=== PATIENT | male | born 1995 | race Two or more races ===

== ENCOUNTER 2025-03-05 16:02 | Emergency (ER) | payer OTHER ==
[~2025-03-05] VITALS: Ht 177.8 cm; Wt 89.4 kg
[2025-03-05] MEDS ORDERED: BENZONATATE 200 MG CAPSULE PO ONE (16:45)
[2025-03-05] MEDS ORDERED: IPRATROPIUM BROMIDE 0.5 MG/2.5 ML AMPUL.NEB IH SCH (16:45)
[2025-03-05] MEDS ORDERED: MAGNESIUM SULFATE IN WATER 2 GM/50 ML PIGGYBAG IV ONE (16:45)
[2025-03-05] MEDS ORDERED: FAMOtidine 10 MG/ML (4ML VIAL) IV ONE (16:45)
[2025-03-05] MEDS ORDERED: LEVALBUTEROL HCL 1.25 MG/3 ML SOLUTION IH SCH (16:45)
[2025-03-05] MEDS ORDERED: METHYLPREDNISOLONE SOD SUCC 125 MG VIAL IV ONE (16:45)
[2025-03-05] MEDS ORDERED: PIPERACILLIN/TAZOBACTAM SODIUM 3.375 GM VIAL IV ONE (16:45)
[2025-03-05 17:40] LABS: BASO % 0.3 % (0.1-1.2); EOS # 0.01 (0.04-0.54); EOS % 0.3 % (0.7-7.0); LYMPH # 0.63 (1.18-3.74); LYMPH % 16.1 % (19.3-53.1); MEAN PLATELET VOLUME 10.80 fl (9.4-12.4); MONO # 0.57 (0.24-0.82); NEUT # 2.69 (1.56-6.13); NEUT % 68.5 % (34.0-71.1); RED CELL DISTRIBUTION WIDTH 11.9 % (11.6-14.4)
[2025-03-05 17:42] LABS: MONO % 14.5 % (4.7-12.5)
[2025-03-05 17:55] LABS: COVID-19 AG NEGATIVE (NEGATIVE)
[2025-03-05 17:56] LABS: INR 0.99
[2025-03-05 18:00] LABS: ALT/SGPT 26.0 U/L (12-78); AST/SGOT 25.0 U/L (15-37); BILIRUBIN TOTAL 1.02 mg/dL (0.3-1.2); BUN CREA RATIO 14.0 (7.0-25.0); CREATININE SERUM 1.11 mg/dL (0.70-1.30); GFR 78.88; GLOBULINA 3.2 G/DL (2.4-3.5); GLUCOSE FASTING 125.0 mg/dL (65-100); OSMOLALITY SERUM 275.0 MOSM/KG (275-295)
[2025-03-05 18:00] LABS: ABG PH 7.427 (7.35-7.45); ABG PO2 65.7 mmHg (80-100); BICARBONATE 23.9 mmol/l (23-25)
[2025-03-05 18:01] LABS: o2 21.0 %
[2025-03-05] MEDS ORDERED: LEVALBUTER0.63 MG/3 IH (21:29)
[2025-03-05] MEDS ORDERED: BENZONATATE200 M1 PO (21:29)
[2025-03-05] MEDS ORDERED: PEPCID AC20 MG PO (21:29)
[2025-03-05] MEDS ORDERED: LEVOFLOXACIN750 MG PO (21:29)
[2025-03-05] MEDS ORDERED: MEDROLPACK PO (21:29)
== END 2025-03-05 21:44 | disposition home or self-care (01) ==
LOC: ER 18:14
PROVIDERS: General Practice
DX: J45.901 Unspecified asthma with (acute) exacerbation (principal); Z20.822 Contact with and (suspected) exposure to COVID-19; R91.8 Other nonspecific abnormal finding of lung field